=== PATIENT | male | born 1975 | race Caucasian/White ===

== ENCOUNTER 2025-02-15 21:40 | Emergency (ER) | payer MEDICAID, OTHER ==
[~2025-02-15] VITALS: Ht 165.1 cm; Wt 91.0 kg
[2025-02-15 22:01] VITALS: O2SAT 99
[2025-02-15 22:57] LABS: BASOPHILS % 0.2 % (0.0-2.0); EOSINOPHILS % 0.2 % (0.0-5.0); HEMATOCRIT. 42.9 % (42.0-52.0); HEMOGLOBIN. 14.2 g/dL (14.0-18.0); LYMPHOCYTES % 8.5 % (20.0-50.0); MEAN PLATELET VOLUME 8.0 fl (7.4-10.4); MONOCYTES % 9.1 % (2.0-8.0); NEUTROPHILS % 82.0 % (40.0-76.0); PLATELET 217 x1000/uL (130-400); RED BLOOD CELL COUNT 4.97 mill/uL (4.7-6.1); RED CELL DISTRIBUTION WIDTH 13.8 % (11.6-14.6)
[2025-02-15 23:16] LABS: CREATININE 0.8 mg/dL (0.6-1.3); UREA NITROGEN BLOOD 8 mg/dL (9-23)
[2025-02-15 23:17] LABS: ETHANOL BLOOD < 10 mg/dL (<10); TROPONIN I HIGH SENSITIVITY 22 ng/L (3.0-53)
[2025-02-15 23:18] LABS: ASPARTATE AMINOTRANSFERASE 22 IU/L (<34); BILIRUBIN DIRECT 0.2 mg/dL (<=3.0)
[2025-02-15 23:19] LABS: BILIRUBIN TOTAL 0.7 mg/dL (0.1-1.0); PROTEIN TOTAL 7.1 g/dL (6.0-8.3)
[2025-02-15] MEDS ORDERED: DICYCLOMINE 10 MG/5 ML ORAL SYR PO STA (23:44)
[2025-02-15 23:47] LABS: CLARITY URINE CLEAR (CLEAR); COLOR URINE YELLOW (YELLOW); GLUCOSE URINE NEGATIVE (NEGATIVE); KETONES URINE NEGATIVE (NEGATIVE); LEUKOCYTE ESTERASE URINE NEGATIVE (NEGATIVE); NITRITE URINE NEGATIVE (NEGATIVE); OCCULT BLOOD URINE NEGATIVE (NEGATIVE); PH URINE 5.5 (4.5-8.0); PROTEIN URINE NEGATIVE (NEGATIVE); SPECIFIC GRAVITY URINE 1.020 (1.005-1.030); UROBILINOGEN URINE 1.0 E.U./dL (0.2-1.0)
[2025-02-15] MEDS ORDERED: FAMO-135 MT (23:50)
[2025-02-15] MEDS: MAGNESIUM/ALUMINUM HYDROXIDE/SIMETHICONE 30ML UDC PO STA (23:57)
[2025-02-15] MEDS: ONDANSETRON 4MG ODT PO STA (23:58)
[2025-02-15] MEDS: FAMOTIDINE 20MG TABLET PO ONE (23:58)
[2025-02-15] MEDS: DICYCLOMINE HCL 10MG CAPSULE PO NR (23:59)
[2025-02-16 00:52] VITALS: BP 134/72; PULSE 66; RESP 12; TEMP 37.3; O2SAT 99
== END 2025-02-16 00:54 | disposition home or self-care (01) ==
LOC: ER 21:40
DX: K29.70 Gastritis, unspecified, without bleeding (principal); Z79.899 Other long term (current) drug therapy
CPT/HCPCS: 80076; 80048; 81003; 80320; 83690; 85025; 84484; 36415; 93005; 99284; Q0162; G0480